=== PATIENT | female | born 1980 | race Hispanic/Latino ===

== ENCOUNTER 2017-02-19 16:15 | Emergency (ER) | payer OTHER ==
[2017-02-19 16:25] VITALS: BP 131/96; PULSE 80; RESP 16; TEMP 98.1; O2SAT 99
[2017-02-19] MEDS ORDERED: Absorbable Gelatin Sponge Size 12-7 ONE (16:46)
--- NOTE | 2017-02-19 16:47 | ED PDOC ---
Upper Extremity Pain/Injury Time Seen by Provider: 02/19/17 16:26 Chief Complaint (Nursing): Abnormal Skin Integrity Chief Complaint (Provider): Right finger laceration History Per: Patient History/Exam Limitations: no limitations Onset/Duration Of Symptoms: Hrs (Prior to arrival) Current Symptoms Are (Timing): Still Present Additional Complaint(s): Amna is a 36 y/o female who presents to the ED for complaints of a right pinky finger laceration associated with pain and bleeding, sustained prior to arrival. She describes her finger slipping while using the [employer] slicer tool cooking today. Tetanus vaccination is up to date. PMD: Unknown Past Medical History Reviewed: Historical Data, Nursing Documentation, Vital Signs Vital Signs: Last Vital Signs Temp 98.1 F 02/19/17 16:22 Pulse 80 02/19/17 16:22 Resp 16 02/19/17 16:22 BP 131/96 H 02/19/17 16:22 Pulse Ox 99 02/19/17 16:22 - Medical History PMH: No Chronic Diseases - Family History Family History: States: Unknown Family Hx - Immunization History Hx Tetanus Toxoid Vaccination: Yes (up to date) - Allergies Allergies/Adverse Reactions: Allergies Allergy/AdvReac Type Severity Reaction Status Date / Time Sulfa (Sulfonamide Allergy RASH Verified 02/19/17 16:22 Antibiotics) Review of Systems ROS Statement: Except As Marked, All Systems Reviewed And Found Negative Musculoskeletal: Positive for: Hand Pain (Right pinky finger pain and bleeding) Skin: Positive for: Lesions (to the right pinky) Physical Exam - Reviewed Nursing Documentation Reviewed: Yes Vital Signs Reviewed: Yes - Physical Exam Appears: Positive for: Well, Non-toxic, No Acute Distress Head Exam: Positive for: ATRAUMATIC, NORMAL INSPECTION, NORMOCEPHALIC Skin: Positive for: Normal Color, Warm, Dry Eye Exam: Positive for: EOMI, Normal appearance, PERRL Neck: Positive for: Normal, Painless ROM, Supple Extremity: Positive for: Normal ROM, Deformity (Skin flap to right pinky, at the lateral aspect. Flap tissue is non-viable. Active bleeding present.) Neurologic/Psych: Positive for: Alert, Oriented. Negative for: Motor/Sensory Deficits - ECG O2 Sat by Pulse Oximetry: 99 (RA) Pulse Ox Interpretation: Normal Medical Decision Making Medical Decision Making: Time: 16:29 Clinical Impression: Right pinky avulsion Initial Plan: --Removed non-viable flat tissue from right pinky. 1.5cc of lidocaine used --Applied gel foam. Informed patient that gel foam should stay on for 2 days Time: 17:00 --Patient is medically stable and ready for disposition --Educated on wound care and advised to keep right pinky above the level of the heart --If bleeding has not stopped later tonight, patient advised to return to ER Scribe Attestation: Documented by Kourtney Petit, acting as a scribe for Romina Barron PA-C Provider Scribe Attestation: All medical record entries made by the Scribe were at my direction and personally dictated by me. I have reviewed the chart and agree that the record accurately reflects my personal performance of the history, physical exam, medical decision making, and the department course for this patient. I have also personally directed, reviewed, and agree with the discharge instructions and disposition. Disposition - Clinical Impression Clinical Impression: Avulsion of skin - Patient ED Disposition Is Patient to be Admitted: No Counseled Patient/Family Regarding: Diagnosis, Need For Followup - Disposition Disposition: Routine/Home Disposition Time: 17:00 Condition: FAIR Additional Instructions: keep finger above level of heartto help stop bleeidng. do not wet wound wound will bleed but should subside as the day/night progresses,but if not please return to ER Instructions: Skin Avulsion (ED) Forms: [employer] (German)
== END 2017-02-19 17:10 | disposition home or self-care (01) ==
LOC: H.ER 16:15
DX: T14.8 Other injury of unspecified body region (principal); W26.8XXA Contact with other sharp object(s), not elsewhere classified, initial encounter; Y92.000 Kitchen of unspecified non-institutional (private) residence as the place of occurrence of the external cause